=== PATIENT | female | born 1935 | race Caucasian/White ===

== ENCOUNTER 2021-05-07 22:25 | Emergency (ER) | payer OTHER ==
[2021-05-07 22:55] VITALS: TEMP 99; BMI 23.4
[2021-05-07] MEDS ORDERED: ONDANSETRON 4 MG/2 ML VIAL IVPUSH ONE (23:01)
[2021-05-07] MEDS ORDERED: ONDANSETRON 4 MG/2 ML VIAL ONE (23:05)
[2021-05-07 23:27] LABS: BASO % 0.6 % (0-2.0); EOS % 0.3 % (0-4.5); HEMATOCRIT 38.7 % (32.4-45.2); HEMOGLOBIN 12.7 GM/dL (10.7-15.3); LYMPH % 8.2 % (8-40); MCH 30.2 pg (25.7-33.7); MCHC 32.9 g/dl (32.0-36.0); MEAN CELL VOLUME 91.7 fl (80-96); MEAN PLT VOLUME 7.8 fl (7.5-11.1); MONO % 5.4 % (3.8-10.2); NEUT % 85.5 % (42.8-82.8); PLATELET COUNT 198 10^3/uL (134-434); RBC 4.22 M/mm3 (3.60-5.2); RDW 15.7 % (11.6-15.6)
[2021-05-07 23:35] LABS: INR 1.18 (0.83-1.09); PROTHROMBIN TIME (PATIENT) 14.4 SEC (9.7-13.0)
[2021-05-07 23:38] LABS: ACTIVATED PTT 26.7 SECONDS (25.2-36.5)
[2021-05-07 23:48] LABS: ALBUMIN 3.6 g/dl (3.4-5.0); BLOOD UREA NITROGEN 12.7 mg/dL (7-18); CALCIUM 8.5 mg/dL (8.5-10.1)
[2021-05-07] MEDS ORDERED: METOCLOPRAMIDE HCL INJECTION 10 MG/2 ML VIAL IVPUSH ONE (23:49)
[2021-05-07] MEDS ORDERED: LACTATED RINGERS SOLUTION 1000 ML INFUS.BAG IV ONE (23:51)
[2021-05-07] MEDS ORDERED: METOCLOPRAMIDE HCL INJECTION 10 MG/2 ML VIAL ONE (23:51)
[2021-05-07 23:52] LABS: CREATININE 0.8 mg/dL (0.55-1.3)
[2021-05-07 23:53] LABS: BILIRUBIN,TOTAL 0.4 mg/dL (0.2-1); TOT PROT 7.4 g/dl (6.4-8.2)
[2021-05-07] MEDS ORDERED: FAMOTIDINE 20 MG/50 ML IVPB 20 MG/50 ML MG IVPB ONE (23:54)
[2021-05-08] MEDS ORDERED: FAMOTIDINE 20 MG/50 ML IVPB 20 MG/50 ML MG IVPB ONE (00:24)
[2021-05-08 02:50] VITALS: BP 105/74; PULSE 88
== END 2021-05-08 02:50 | disposition home or self-care (01) ==
LOC: JER 22:25
PROC: 3E033NZ Introduction of Analgesics, Hypnotics, Sedatives into Peripheral Vein, Percutaneous Approach (ICD-10-PCS; principal; 2021-05-07)
PROC: 3E033GC Introduction of Other Therapeutic Substance into Peripheral Vein, Percutaneous Approach (ICD-10-PCS; 2021-05-07)
PROC: 3E033GC Introduction of Other Therapeutic Substance into Peripheral Vein, Percutaneous Approach (ICD-10-PCS; 2021-05-07)
DX: S09.90XA Unspecified injury of head, initial encounter (principal); S42.211A Unspecified displaced fracture of surgical neck of right humerus, initial encounter for closed fracture; S52.091A Other fracture of upper end of right ulna, initial encounter for closed fracture; W19.XXXA Unspecified fall, initial encounter; Y92.9 Unspecified place or not applicable
CPT/HCPCS: 36415; 70450-TC; 72125-TC; 73030-TC-RT-FY; 73090-TC-RT-FY; 73523-TC-FY; 73552-TC-RT-FY; 73562-TC-RT-FY; 73590-TC-RT-FY; 80053; 82550; 84484; 85025; 85610; 85730; 86850; 86900; 86901; 93005; 93010; 99285-25

== ENCOUNTER 2025-02-20 15:11 | Emergency (ER) | payer OTHER ==
[2025-02-20 15:24] VITALS: TEMP 98.8; BMI 23.2
[2025-02-20] MEDS ORDERED: ACETAMINOPHEN INJECTION 100 ML ONE (17:03)
[2025-02-20] MEDS: ACETAMINOPHEN 1000 MG/100 ML BAG IVPB ONE (17:28)
[2025-02-20] MEDS: SODIUM CHLORIDE 0.9% 500 ML INFUS.BAG IV ONE (17:28)
[2025-02-20 17:33] LABS: BASOPHILS # 0.02 x10^3/uL (0.01-0.08); EOSINOPHIL % 9.9 % (0.7-5.8); EOSINOPHILS # 0.57 x10^3/uL (0.04-0.36); HEMATOCRIT 41.8 % (34.1-44.9); HEMOGLOBIN 12.8 g/dL (11.2-15.7); MCHC 30.6 g/dl (32.2-35.5); MEAN CELL VOLUME 95.2 fl (79.4-94.8); MEAN PLT VOLUME 10.5 fl (9.4-12.3); MONOCYTE # 0.47 x10^3/uL (0.24-0.86); MONOCYTE % 8.1 % (4.7-12.5); PLATELET COUNT 156 x10^3/uL (182-369); RDW 13.3 % (12.5-17.0)
[2025-02-20 17:36] LABS: INR 1.19 (0.83-1.09)
[2025-02-20 17:38] LABS: ACTIVATED PTT 32.3 SECONDS (25.2-36.5)
[2025-02-20 17:50] LABS: POTASSIUM 5.1 mmol/L (3.5-5.1)
[2025-02-20 17:53] LABS: ALBUMIN 3.7 g/dl (3.4-5.0); BLOOD UREA NITROGEN 18.7 mg/dL (7-18); CALCIUM 9.3 mg/dL (8.5-10.1); MAGNESIUM 2.3 mg/dL (1.8-2.4)
[2025-02-20 17:55] LABS: CREATININE 0.7 mg/dL (0.55-1.3)
[2025-02-20 17:57] LABS: BILIRUBIN,TOTAL 0.4 mg/dL (0.2-1); PHOSPHOROUS 3.2 mg/dL (2.5-4.9); TOT PROT 7.7 g/dl (6.4-8.2)
[2025-02-20] MEDS: MINERAL OIL ENEMA 133 ML ENEMA RC ONE (20:47)
[2025-02-20 21:20] LABS: URINE APPEARANCE CLEAR; URINE BILIRUBIN NEGATIVE (NEGATIVE); URINE COLOR YELLOW; URINE GLUCOSE (UA) NEGATIVE (NEGATIVE); URINE KETONE TRACE (NEGATIVE); URINE LEUK ESTERASE NEGATIVE (NEGATIVE); URINE NITRITE NEGATIVE (NEGATIVE); URINE PROTEIN TRACE (NEGATIVE)
[2025-02-20 22:03] VITALS: BP 133/71; PULSE 75; RESP 19
== END 2025-02-20 22:06 | disposition home or self-care (01) ==
LOC: JER 15:11
PROC: 3E033NZ Introduction of Analgesics, Hypnotics, Sedatives into Peripheral Vein, Percutaneous Approach (ICD-10-PCS; principal; 2025-02-20)
DX: I71.43 Infrarenal abdominal aortic aneurysm, without rupture (principal); R10.12 Left upper quadrant pain; R10.32 Left lower quadrant pain; K59.09 Other constipation; R31.9 Hematuria, unspecified
CPT/HCPCS: 36415; 74177-TC; 80053; 81003; 83605; 83690; 83735; 84100; 85025; 85610; 85730; 86850; 86900; 86901; 87086; 93005; 93010; 96374; 99285-25